=== PATIENT | female | born 1940 | race Caucasian/White ===

== ENCOUNTER 2018-09-26 11:46 | Inpatient (IN) | payer MEDICARE, BC, OTHER ==
[2018-09-26 12:24] LABS: ADD MAN DIFF? NO
[2018-09-26 12:37] LABS: WHITE BLOOD COUNT 9.6 10^3/ul (4.8-10.8)
[2018-09-26 12:37] LABS: BASOPHIL # 0.1 10^3/ul (0.0-0.1); BASOPHILS % 0.7 % (0.0-2.0); EOSINOPHILS # 0.2 10^3/ul (0.0-0.5); EOSINOPHILS % 2.2 % (0.0-7.0); HEMATOCRIT 31.5 % (37.0-47.0); HEMOGLOBIN 9.5 g/dl (12.0-16.0); LYMPHOCYTES # 2.3 10^3/ul (0.8-2.9); LYMPHOCYTES % 23.6 % (15.0-51.0); MEAN CORPUSCULAR HEMOGLOBIN 26.8 pg (29.0-33.0); MEAN CORPUSCULAR HGB CONC 30.2 g/dl (32.0-37.0); MEAN PLATELET VOLUME 9.4 fl (7.4-10.4); MONOCYTE # 0.6 10^3/ul (0.3-0.9); MONOCYTES % 6.3 % (0.0-11.0); NEUTROPHIL # 6.4 10^3/ul (1.6-7.5); NEUTROPHILS % 66.7 % (39.0-77.0); PLATELET COUNT 431 10^3/UL (140-415); RED BLOOD COUNT 3.54 10^6/ul (4.20-5.40); RED CELL DISTRIBUTION WIDTH 15.9 % (11.5-14.5)
[2018-09-26 12:46] LABS: ALANINE AMINOTRANSFERASE 19 IU/L (13-69); ALBUMIN 3.9 g/dl (3.3-4.9); ALBUMIN/GLOBULIN RATIO 1.02; ALKALINE PHOSPHATASE 131 IU/L (42-121); ANION GAP 9 (5-13); ASPARTATE AMINO TRANSFERASE 22 IU/L (15-46); BILIRUBIN,INDIRECT 0.3 mg/dl (0-1.1); BILIRUBIN,TOTAL 0.3 mg/dl (0.2-1.3); BLOOD UREA NITROGEN 51 mg/dl (7-20); CALCIUM 9.3 mg/dl (8.4-10.2); CARBON DIOXIDE 26 mmol/L (21-31); CHLORIDE 107 mmol/L (97-110); CREATININE 3.78 mg/dl (0.44-1.00); GLUCOSE 226 mg/dl (70-220); POTASSIUM 4.6 mmol/L (3.5-5.1); SODIUM 142 mmol/L (135-144); TOTAL PROTEIN 7.7 g/dl (6.1-8.1)
[2018-09-26] MEDS: IPRATROPIUM (NEB) 0.5 MG/2.5 ML AMP INH (12:46)
[2018-09-26] MEDS: ALBUTEROL 0.5% (NEB) 2.5 MG/0.5 ML AMP INH (12:46)
[2018-09-26 13:04] LABS: B-TYPE NATRIURETIC PEPTIDE 3310 PG/ML (0-450); TROPONIN-I < 0.012 ng/ml (0.000-0.120)
[2018-09-26] MEDS: FUROSEMIDE 40 MG INJ IV (13:13)
[2018-09-26 13:22] LABS: PROTIME 12.3 Sec (11.9-14.9)
[2018-09-26 13:23] LABS: PARTIAL THROMBOPLASTIN TIME 28.5 Sec (23.0-35.0)
[2018-09-26] MEDS ORDERED: ACETAMINOPHEN 325 MG TAB PO (14:30)
[2018-09-26] MEDS ORDERED: ONDANSETRON 4 MG INJ IV (14:30)
[2018-09-26] MEDS: SOLIFENACIN 5 MG TAB PO (18:00)
[2018-09-26] MEDS: CLOPIDOGREL 75 MG TAB PO (18:00)
[2018-09-26 19:31] LABS: CREATINE KINASE 45 IU/L (23-200); IRON 13 ug/dl (35-150)
[2018-09-26 19:32] LABS: MAGNESIUM 2.3 mg/dl (1.7-2.5)
[2018-09-26 19:40] LABS: % IRON SATURATION 5 % SAT (22-52); TOTAL IRON BINDING CAPACITY 283 ug/dl (241-421)
[2018-09-26 19:44] LABS: CK INDEX 1.4; CK-MB 0.62 ng/ml (0.0-2.4); TROPONIN-I < 0.012 ng/ml (0.000-0.120)
[2018-09-26 20:13] LABS: CARCINOEMBRYONIC ANTIGEN 2.2 ng/ml (0.0-5.0)
[2018-09-26 20:14] LABS: Allen Test ACCEPTAB; Arterial Base Excess 0.5 mmol/L (-3.0-3); Arterial Blood Gas Oxygen Sat 73.9 mmHG (95.0-100.0); Arterial COHb 0.3 % (0.0-3.0); Arterial Fraction of Oxyhgb 73.7 % (93.0-99.0); Arterial HCO3 25.5 mmol/L (22.0-26.0); Arterial MetHb 0 % (0.0-1.5); Arterial pCO2 42.8 mmhg (35-45); MODE ROOM AIR; Site Left Radial
[2018-09-26] MEDS: ALBUTEROL/IPRATROPIUM (NEB) 3 ML AMP HHN (20:41)
[2018-09-26] MEDS: LUBIPROSTONE 24 MCG CAP PO (20:54)
[2018-09-26] MEDS: POTASSIUM CHLORIDE (SR) 8 MEQ CAP PO (20:54)
[2018-09-26] MEDS: MAGNESIUM OXIDE 400 MG TAB PO (20:54)
[2018-09-26] MEDS: SACUBITRIL/VALSARTAN (24mg-26mg) TABLET PO (20:54)
[2018-09-26] MEDS: RANOLAZINE (SR) 500 MG TAB PO (20:54)
[2018-09-26] MEDS: ATORVASTATIN 20 MG TAB PO (20:55)
[2018-09-26] MEDS: METOPROLOL 50 MG TAB PO (20:55)
[2018-09-26] MEDS: FUROSEMIDE 40 MG TAB PO (20:56)
[2018-09-26] MEDS ORDERED: DEXTROSE 50% 50 ML SYRINGE IV ×2 (21:00)
[2018-09-26] MEDS ORDERED: GLUCAGON 1 MG INJ IM (21:00)
[2018-09-26] MEDS ORDERED: GLUCOSE GEL 15 GRAM TUBE BUCCAL (21:00)
[2018-09-26] MEDS ORDERED: GLUCOSE GEL 15 GRAM TUBE PO ×2 (21:00)
[2018-09-26] MEDS: INSULIN ASPART [NOVOLOG] 3 ML PEN SC (22:29)
[2018-09-27] MEDS: INSULIN ASPART [NOVOLOG] 3 ML PEN SC ×4 (00:56→17:25)
[2018-09-27 01:16] LABS: CREATINE KINASE 40 IU/L (23-200)
[2018-09-27 01:29] LABS: CK INDEX 1.2; CK-MB 0.46 ng/ml (0.0-2.4); TROPONIN-I < 0.012 ng/ml (0.000-0.120)
[2018-09-27] MEDS: ALBUTEROL/IPRATROPIUM (NEB) 3 ML AMP HHN ×4 (02:04→19:28)
[2018-09-27] MEDS: RANOLAZINE (SR) 500 MG TAB PO (08:13)
[2018-09-27] MEDS: POTASSIUM CHLORIDE (SR) 8 MEQ CAP PO (08:13)
[2018-09-27] MEDS: LINAGLIPTIN 5 MG TABLET PO (08:13)
[2018-09-27] MEDS: LUBIPROSTONE 24 MCG CAP PO ×2 (08:14→20:59)
[2018-09-27] MEDS: METOPROLOL 50 MG TAB PO ×2 (08:14→21:00)
[2018-09-27] MEDS: SACUBITRIL/VALSARTAN (24mg-26mg) TABLET PO (08:14)
[2018-09-27] MEDS: CLOPIDOGREL 75 MG TAB PO (08:14)
[2018-09-27] MEDS: MAGNESIUM OXIDE 400 MG TAB PO (08:14)
[2018-09-27] MEDS: SOLIFENACIN 5 MG TAB PO (08:14)
[2018-09-27] MEDS: FUROSEMIDE 40 MG TAB PO (08:14)
[2018-09-27] MEDS: AMLODIPINE 10 MG TAB PO (11:54)
[2018-09-27] MEDS: ACETAMINOPHEN 500 MG TAB PO (15:36)
[2018-09-27] MEDS: EPOETIN ALFA-EPBX (NON-ESRD 10,000 UNIT/ML VIAL SC (15:49)
[2018-09-27] MEDS: FUROSEMIDE 20 MG INJ IV (17:05)
[2018-09-27] MEDS: ATORVASTATIN 20 MG TAB PO (20:59)
[2018-09-27] MEDS: Insulin NOVOLOG SS MODERATE Algorithm (SS with meals and bedtime) SC (21:23)
[2018-09-28] MEDS: ALBUTEROL/IPRATROPIUM (NEB) 3 ML AMP HHN ×4 (01:17→20:42)
[2018-09-28] MEDS: ACCUCHECK AT 2AM (Patients on SS coverage) XX (02:04)
[2018-09-28 06:56] LABS: ALANINE AMINOTRANSFERASE 17 IU/L (13-69); ALBUMIN 3.5 g/dl (3.3-4.9); ALBUMIN/GLOBULIN RATIO 1.02; ALKALINE PHOSPHATASE 117 IU/L (42-121); ANION GAP 7 (5-13); ASPARTATE AMINO TRANSFERASE 16 IU/L (15-46); BILIRUBIN,INDIRECT 0.3 mg/dl (0-1.1); BILIRUBIN,TOTAL 0.3 mg/dl (0.2-1.3); BLOOD UREA NITROGEN 51 mg/dl (7-20); CALCIUM 9.1 mg/dl (8.4-10.2); CARBON DIOXIDE 27 mmol/L (21-31); CHLORIDE 104 mmol/L (97-110); CREATININE 3.75 mg/dl (0.44-1.00); GLUCOSE 289 mg/dl (70-220); POTASSIUM 4.7 mmol/L (3.5-5.1); SODIUM 138 mmol/L (135-144); TOTAL PROTEIN 6.9 g/dl (6.1-8.1)
[2018-09-28] MEDS: CLOPIDOGREL 75 MG TAB PO (08:06)
[2018-09-28] MEDS: MAGNESIUM OXIDE 400 MG TAB PO (08:06)
[2018-09-28] MEDS: LINAGLIPTIN 5 MG TABLET PO (08:07)
[2018-09-28] MEDS: SOLIFENACIN 5 MG TAB PO (08:07)
[2018-09-28] MEDS: LUBIPROSTONE 24 MCG CAP PO ×2 (08:07→20:59)
[2018-09-28] MEDS: POTASSIUM CHLORIDE (SR) 8 MEQ CAP PO (08:07)
[2018-09-28] MEDS: AMLODIPINE 10 MG TAB PO (08:08)
[2018-09-28] MEDS: METOPROLOL 50 MG TAB PO ×2 (08:08→21:02)
[2018-09-28] MEDS: Insulin NOVOLOG SS MODERATE Algorithm (SS with meals and bedtime) SC ×4 (08:14→22:18)
[2018-09-28] MEDS: FUROSEMIDE 40 MG INJ IV (09:28)
[2018-09-28 10:03] LABS: FERRITIN 18.7 ng/ml (11.1-264.0)
[2018-09-28] MEDS: SOD FERRIC GLUC COMPLX 125 MG in SOD CHLORIDE 0.9% 100 ML IVPB (14:17)
[2018-09-28 16:41] LABS: ADD UMIC YES; UR ASCORBIC ACID NEGATIVE (NEGATIVE); UR BACTERIA MANY /HPF (NONE SEEN); UR BILIRUBIN (Dip) NEGATIVE (NEGATIVE); UR BLOOD (Dip) NEGATIVE (NEGATIVE); UR CLARITY CLOUDY (CLEAR); UR COLOR YELLOW (YELLOW); UR GLUCOSE (Dip) NEGATIVE (NEGATIVE); UR KETONES (Dip) NEGATIVE (NEGATIVE); UR LEUKOCYTE ESTERASE (Dip) 3+ Leu/ul (NEGATIVE); UR NITRITE (Dip) NEGATIVE (NEGATIVE); UR RBC 8 /HPF (0-5); UR TOTAL PROTEIN (Dip) 2+ mg/dl (NEGATIVE); UR UROBILINOGEN (Dip) NEGATIVE (NEGATIVE); UR WBC > 182 /HPF (0-5)
[2018-09-28 17:04] LABS: CREATININE,URINE RANDOM 40.56 mg/dl (20-320)
[2018-09-28 17:05] LABS: PROTEIN/CREAT RATIO 7.71 RATIO
[2018-09-28] MEDS: ATORVASTATIN 20 MG TAB PO (20:59)
[2018-09-29] MEDS: ALBUTEROL/IPRATROPIUM (NEB) 3 ML AMP HHN ×3 (02:27→14:01)
[2018-09-29] MEDS: ACCUCHECK AT 2AM (Patients on SS coverage) XX (02:32)
[2018-09-29] MEDS: PANTOPRAZOLE (EC) 40 MG TAB PO (03:45)
[2018-09-29 05:38] LABS: ADD MAN DIFF? NO
[2018-09-29 05:42] LABS: BASOPHILS % 0.5 % (0.0-2.0); EOSINOPHILS # 0.2 10^3/ul (0.0-0.5); HEMATOCRIT 30.3 % (37.0-47.0); HEMOGLOBIN 9.3 g/dl (12.0-16.0); LYMPHOCYTES # 1.5 10^3/ul (0.8-2.9); LYMPHOCYTES % 17.8 % (15.0-51.0); MEAN CORPUSCULAR HEMOGLOBIN 26.9 pg (29.0-33.0); MEAN CORPUSCULAR HGB CONC 30.7 g/dl (32.0-37.0); MEAN CORPUSCULAR VOLUME 87.6 fl (82.0-101.0); MEAN PLATELET VOLUME 9.3 fl (7.4-10.4); MONOCYTE # 0.8 10^3/ul (0.3-0.9); MONOCYTES % 9.8 % (0.0-11.0); NEUTROPHIL # 5.9 10^3/ul (1.6-7.5); NEUTROPHILS % 69.3 % (39.0-77.0); PLATELET COUNT 374 10^3/UL (140-415); RED BLOOD COUNT 3.46 10^6/ul (4.20-5.40); RED CELL DISTRIBUTION WIDTH 15.7 % (11.5-14.5)
[2018-09-29 05:42] LABS: WHITE BLOOD COUNT 8.5 10^3/ul (4.8-10.8)
[2018-09-29 06:52] LABS: ANION GAP 12 (5-13); BLOOD UREA NITROGEN 54 mg/dl (7-20); CALCIUM 8.8 mg/dl (8.4-10.2); CARBON DIOXIDE 26 mmol/L (21-31); CHLORIDE 100 mmol/L (97-110); CREATININE 3.98 mg/dl (0.44-1.00); GLUCOSE 275 mg/dl (70-220); MAGNESIUM 2.5 mg/dl (1.7-2.5); PHOSPHORUS 6.2 mg/dl (2.5-4.9); POTASSIUM 4.5 mmol/L (3.5-5.1); SODIUM 138 mmol/L (135-144)
[2018-09-29] MEDS: Insulin NOVOLOG SS MODERATE Algorithm (SS with meals and bedtime) SC ×2 (08:15→12:22)
[2018-09-29] MEDS: SOLIFENACIN 5 MG TAB PO (09:46)
[2018-09-29] MEDS: FUROSEMIDE 40 MG INJ IV (09:46)
[2018-09-29] MEDS: MAGNESIUM OXIDE 400 MG TAB PO (09:46)
[2018-09-29] MEDS: CLOPIDOGREL 75 MG TAB PO (09:47)
[2018-09-29] MEDS: POTASSIUM CHLORIDE (SR) 8 MEQ CAP PO (09:47)
[2018-09-29] MEDS: AMLODIPINE 10 MG TAB PO (09:47)
[2018-09-29] MEDS: LUBIPROSTONE 24 MCG CAP PO (09:47)
[2018-09-29] MEDS: LINAGLIPTIN 5 MG TABLET PO (09:47)
[2018-09-29] MEDS: METOPROLOL 50 MG TAB PO (09:48)
[2018-09-29] MEDS: SOD FERRIC GLUC COMPLX 125 MG in SOD CHLORIDE 0.9% 100 ML IVPB (12:46)
== END 2018-09-29 16:17 | disposition home or self-care (01) | DRG 291 ==
LOC: E/R 11:46 → 6WM 14:08
DX: I13.0 Hypertensive heart and chronic kidney disease with heart failure and stage 1 through stage 4 chronic kidney disease, or unspecified chronic kidney disease (principal); I50.33 Acute on chronic diastolic (congestive) heart failure; J96.01 Acute respiratory failure with hypoxia; N18.4 Chronic kidney disease, stage 4 (severe); E11.22 Type 2 diabetes mellitus with diabetic chronic kidney disease; E11.21 Type 2 diabetes mellitus with diabetic nephropathy; E11.319 Type 2 diabetes mellitus with unspecified diabetic retinopathy without macular edema; I35.0 Nonrheumatic aortic (valve) stenosis; I34.0 Nonrheumatic mitral (valve) insufficiency; D63.1 Anemia in chronic kidney disease; E78.5 Hyperlipidemia, unspecified; I25.10 Atherosclerotic heart disease of native coronary artery without angina pectoris; K21.9 Gastro-esophageal reflux disease without esophagitis; E03.9 Hypothyroidism, unspecified; Z87.440 Personal history of urinary (tract) infections; M81.0 Age-related osteoporosis without current pathological fracture; K59.00 Constipation, unspecified; R19.7 Diarrhea, unspecified; F43.20 Adjustment disorder, unspecified; F32.9 Major depressive disorder, single episode, unspecified; Z91.81 History of falling; R26.81 Unsteadiness on feet; M19.90 Unspecified osteoarthritis, unspecified site; R41.3 Other amnesia; R42 Dizziness and giddiness; Z79.4 Long term (current) use of insulin
CPT/HCPCS: 36415; 36600; 71045; 71250; 78582; 80048; 80053; 81001; 81003; 82378; 82550; 82553; 82570; 82607; 82728; 82803; 82962; 83540; 83735; 83880; 84100; 84443; 84484; 85025; 85610; 85730; 87086; 87400; 93005; 93306; 93970; 94640; 94644; 94664; 96374; 97116; 97162; 99285-25